=== PATIENT | female | born 1975 | race Hispanic/Latino ===

== ENCOUNTER 2018-03-10 20:28 | Emergency (ER) | payer OTHER ==
[~2018-03-10] VITALS: Ht 152.4 cm; Wt 75.0 kg
[2018-03-10] MEDS ORDERED: ONDANSETRON HCL INJ 2 MG/ML VIAL IV STA (20:58)
[2018-03-10] MEDS ORDERED: KETOROLAC TROMETHAMINE 30 MG/ML VIAL IV STA (20:58)
[2018-03-10] MEDS ORDERED: MORPHINE SULFATE 4 MG/ML SYR IV ONE (21:00)
[2018-03-10] MEDS ORDERED: SODIUM CHLORIDE 0.9% 1000ML 1,000 ML IV ONE (21:15)
[2018-03-10] MEDS ORDERED: CIPROFLOXACIN 500 MG TAB PO ONE (22:15)
[2018-03-10] MEDS ORDERED: METRONIDAZOLE 500MG/NS 100ML 100 ML IV ONE (22:15)
[2018-03-10] MEDS ORDERED: FENTANYL CITRATE/PF 100MCG/2 ML INJ IV ONE (22:15)
[2018-03-10 23:05] VITALS: BP 125/80
== END 2018-03-10 23:35 | disposition home or self-care (01) ==
LOC: FSED 20:28
DX: R10.9 Unspecified abdominal pain (principal); K57.32 Diverticulitis of large intestine without perforation or abscess without bleeding; H91.3 Deaf nonspeaking, not elsewhere classified
CPT/HCPCS: 74176; 80053; 81003; 81025; 85025; 96374; 96375; 99284; J1885; J2270; J2405; J7030

== ENCOUNTER 2018-03-17 00:46 | Inpatient (IN) | payer OTHER ==
[2018-03-17] VITALS (7 sets, daily range): BP systolic 138–160; BP diastolic 57–99
[~2018-03-17] VITALS: Ht 152.4 cm; Wt 68.5 kg
[2018-03-17 01:22] LABS: BASOPHILS % 0.3 % (0.0-1.0); EOSINOPHILS # (AUTO) 0.1 (0.0-0.4); EOSINOPHILS % 0.9 % (0.0-6.0); HEMATOCRIT 40.3 % (34.2-44.1); HEMOGLOBIN 13.7 g/dL (12.0-16.0); LYMPHOCYTES % 13.6 % (18.0-39.1); MEAN CORPUSCULAR HEMOGLOBIN 31.4 pg (28-32); MEAN CORPUSCULAR VOLUME 92.4 fL (81-99); MONOCYTES # (AUTO) 1.1 (0.2-0.8); MONOCYTES % 7.5 % (4.4-11.3); NEUTROPHILS # (AUTO) 11.3 (2.1-6.9); NEUTROPHILS % 77.4 % (38.7-80.0); PLATELET COUNT 472 x10e3/uL (140-360); RED BLOOD COUNT 4.36 x10e6/uL (3.6-5.1); RED CELL DISTRIBUTION WIDTH 12.6 % (11.7-14.4)
[2018-03-17 01:31] LABS: PREGNANCY TEST, URINE NEGATIVE (NEGATIVE)
[2018-03-17 01:33] LABS: INR 0.98; PARTIAL THROMBOPLASTIN TIME 29.7 seconds (23.8-35.5); PROTHROMBIN TIME 12.2 seconds (11.9-14.5)
[2018-03-17 01:34] LABS: ALBUMIN 3.6 g/dL (3.5-5.0); ALBUMIN/GLOBULIN RATIO 0.9 (0.8-2.0); ANION GAP 13.6 mmol/L (8-16); CALCIUM 9.6 mg/dL (8.4-10.2); CREATININE, SERUM 1.51 mg/dL (0.57-1.11); POTASSIUM 3.6 mmol/L (3.5-5.1)
[2018-03-17 01:42] LABS: CLARITY,URINE CLEAR (CLEAR); COLOR,URINE YELLOW (YELLOW); LEUKOCYTE ESTERASE ,URINE TRACE (NEGATIVE)
[2018-03-17 01:43] LABS: BACTERIA,URINE FEW /HPF; BILIRUBIN,URINE NEGATIVE (NEGATIVE); EPITHELIAL CELLS,URINE FEW /LPF; KETONES,URINE NEGATIVE (NEGATIVE); NITRITE,URINE NEGATIVE (NEGATIVE); PROTEIN,URINE DIPSTICK 1+ (NEGATIVE); URINE UROBILINOGEN 0.2 mg/dL (0.2 - 1)
[2018-03-17] MEDS ORDERED: MORPHINE SULFATE 2 MG/ML SYR IV STA (01:47)
[2018-03-17] MEDS ORDERED: ONDANSETRON HCL 4 MG ORAL DISINTEGRATING TAB PO ONE (02:00)
--- OUTSIDE RECORDS SUMMARY | 2018-03-17 02:17 | XMS REPORT | Continuity of Care Document ---
Author Author [facility] Organization [facility] Address [address] [place] [address] Phone Unavailable Care Team Providers Care Information Systems Security Developer Name Role Phone NO, PCP PCP Unavailable Insurance Providers Guarantor Bismark Denny Address [address] [place] [address] [facility] Policy Number [id number] Subscriber's Name Bismark Denny Relationship 18 Self / Same As Patient Advance Directives Directive Response Recorded Date/Time Does the patient have an advance directive? No 03/10/18 9:39pm If yes, is advance directive on file with [facility]? No 03/10/18 9:39pm If not on file with [facility] will patient provide a copy? No 03/10/18 9:39pm Do you have a Directive to Physician? No 03/10/18 9:39pm Do you have a Medical Power of Marketing And Outreach Coordinator? No 03/10/18 9:39pm Do you have an out of hospital Do Not Resuscitate Order? No 03/10/18 9:39pm Do you have any special needs we should be aware of? No 03/10/18 9:39pm Do you have a support person here with you today? No 03/10/18 9:39pm Did patient receive Notice of Privacy Practices? Yes 03/10/18 9:39pm Did patient receive patient rights and responsibilities? Yes 03/10/18 9:39pm Problems No problem information available. Medications No medication information available. Social History Smoking Status Start Date Stop Date Never Smoker Hospital Discharge Instructions No hospital discharge instruction information available. Plan of Care Discharge Date 03/10/18 11:35pm Disposition HOME, SELF-CARE Condition at Discharge Stable Forms Provided Work/School Excuse Prescriptions See Medication Section Referrals [facility] DO MD Address: [address] [place] [address] [address] [place] [address] Additional Instructions/Education CLINICAL IMPRESSION Acute diverticulitis of the colon. No perforation, bleeding or abscess. DISCHARGE INSTRUCTIONS Drink plenty of fluids. Prescription Medications: Cipro 500 mg: take 1 tab orally every 12 hours for 10 days. Dispense twenty (20). No refills. Substitution is permissible. Flagyl 500 mg: Take 1 tablet orally every 12 hours for 7 days. No refill. Substitution is permissible. Tylenol with Codeine Functional Status No functional status information available. Allergies, Adverse Reactions, Alerts Allergen Type Severity Reaction Status Last Updated CT SCAN DYE Allergy Severe Active 03/10/18 Immunizations No immunization information available. Vital Signs Acute Vital Signs Vital Response Date/Time Temperature (Fahrenheit) 98.0 degrees F (97.6 - 99.5) 03/10/2018 11:05pm Pulse Pulse Rate (adult) 72 bpm (60 - 90) 03/10/2018 11:05pm Respiratory Rate 18 bpm (12 - 24) 03/10/2018 11:05pm Blood Pressure 125/80 mm Hg 03/10/2018 11:05pm Height 5 ft 0 in 03/10/2018 9:00pm Weight 165.44 lb 03/10/2018 9:00pm Body Mass Index 32.3 kg/m^2 03/10/2018 9:00pm Results No relevant diagnostic test, laboratory data and/or discharge summary information available. Procedures No procedure information available. Encounters Encounter Location Arrival/Admit Date Discharge/Depart Date Attending Provider Departed Emergency Room [facility] 03/10/18 8:28pm 11:35pm CLAIRE CERDA MD
[2018-03-17] MEDS: LEVOFLOXACIN 500MG/D5W 100ML 100 ML IV SCH (02:45)
[2018-03-17] MEDS: METRONIDAZOLE 500MG/NS 100ML 100 ML IV SCH ×4 (02:45→19:42)
[2018-03-17] MEDS: SODIUM CHLORIDE 0.9% 1000ML 1,000 ML IV SCH ×2 (02:45→12:45)
[2018-03-17 07:36] LABS: BASOPHILS % 0.4 % (0.0-1.0); EOSINOPHILS # (AUTO) 0.1 (0.0-0.4); EOSINOPHILS % 1.3 % (0.0-6.0); HEMATOCRIT 34.2 % (34.2-44.1); HEMOGLOBIN 11.4 g/dL (12.0-16.0); LYMPHOCYTES # (AUTO) 2.5 (1.0-3.2); LYMPHOCYTES % 22.1 % (18.0-39.1); MEAN CORPUSCULAR HEMOGLOBIN 31.3 pg (28-32); MEAN CORPUSCULAR HGB CONC 33.3 g/dL (31-35); MONOCYTES % 8.6 % (4.4-11.3); NEUTROPHILS # (AUTO) 7.5 (2.1-6.9); NEUTROPHILS % 67.2 % (38.7-80.0); PLATELET COUNT 421 x10e3/uL (140-360); RED BLOOD COUNT 3.64 x10e6/uL (3.6-5.1); RED CELL DISTRIBUTION WIDTH 12.7 % (11.7-14.4)
[2018-03-17] MEDS: MORPHINE SULFATE 2 MG/ML SYR IV PRN ×2 (11:44→19:42)
[2018-03-17 12:47] LABS: BASOPHILS % 0.2 % (0.0-1.0); EOSINOPHILS # (AUTO) 0.2 (0.0-0.4); EOSINOPHILS % 1.2 % (0.0-6.0); HEMATOCRIT 35.6 % (34.2-44.1); HEMOGLOBIN 11.9 g/dL (12.0-16.0); LYMPHOCYTES # (AUTO) 2.2 (1.0-3.2); LYMPHOCYTES % 17.1 % (18.0-39.1); MEAN CORPUSCULAR HEMOGLOBIN 31.3 pg (28-32); MEAN CORPUSCULAR HGB CONC 33.4 g/dL (31-35); MEAN CORPUSCULAR VOLUME 93.7 fL (81-99); MONOCYTES # (AUTO) 1.2 (0.2-0.8); MONOCYTES % 9.4 % (4.4-11.3); NEUTROPHILS # (AUTO) 9.2 (2.1-6.9); NEUTROPHILS % 71.8 % (38.7-80.0); PLATELET COUNT 426 x10e3/uL (140-360); RED CELL DISTRIBUTION WIDTH 12.7 % (11.7-14.4)
[2018-03-17 19:10] LABS: BASOPHILS % 0.3 % (0.0-1.0); EOSINOPHILS # (AUTO) 0.1 (0.0-0.4); EOSINOPHILS % 0.7 % (0.0-6.0); HEMATOCRIT 37.3 % (34.2-44.1); HEMOGLOBIN 12.4 g/dL (12.0-16.0); LYMPHOCYTES % 15.6 % (18.0-39.1); MEAN CORPUSCULAR HEMOGLOBIN 31.2 pg (28-32); MEAN CORPUSCULAR HGB CONC 33.2 g/dL (31-35); MONOCYTES # (AUTO) 1.1 (0.2-0.8); MONOCYTES % 8.6 % (4.4-11.3); NEUTROPHILS # (AUTO) 9.3 (2.1-6.9); NEUTROPHILS % 74.4 % (38.7-80.0); PLATELET COUNT 438 x10e3/uL (140-360); RED BLOOD COUNT 3.97 x10e6/uL (3.6-5.1); RED CELL DISTRIBUTION WIDTH 12.7 % (11.7-14.4)
[2018-03-17] MEDS: ONDANSETRON HCL 4 MG ORAL DISINTEGRATING TAB PO PRN (19:42)
[2018-03-18] VITALS (8 sets, daily range): BP systolic 134–163; BP diastolic 74–87
[2018-03-18] MEDS: SODIUM CHLORIDE 0.9% 1000ML 1,000 ML IV SCH ×2 (00:02→15:38)
[2018-03-18 00:13] LABS: BASOPHILS % 0.2 % (0.0-1.0); EOSINOPHILS # (AUTO) 0.1 (0.0-0.4); EOSINOPHILS % 0.4 % (0.0-6.0); HEMATOCRIT 35.8 % (34.2-44.1); HEMOGLOBIN 11.9 g/dL (12.0-16.0); LYMPHOCYTES # (AUTO) 2.1 (1.0-3.2); LYMPHOCYTES % 16.2 % (18.0-39.1); MEAN CORPUSCULAR HGB CONC 33.2 g/dL (31-35); MEAN CORPUSCULAR VOLUME 93.2 fL (81-99); MONOCYTES % 7.9 % (4.4-11.3); NEUTROPHILS # (AUTO) 9.6 (2.1-6.9); NEUTROPHILS % 74.8 % (38.7-80.0); PLATELET COUNT 444 x10e3/uL (140-360); RED BLOOD COUNT 3.84 x10e6/uL (3.6-5.1); RED CELL DISTRIBUTION WIDTH 12.9 % (11.7-14.4)
[2018-03-18] MEDS: METRONIDAZOLE 500MG/NS 100ML 100 ML IV SCH ×4 (01:35→20:14)
[2018-03-18] MEDS: LEVOFLOXACIN 500MG/D5W 100ML 100 ML IV SCH (02:32)
[2018-03-18 06:11] LABS: BASOPHILS % 0.3 % (0.0-1.0); EOSINOPHILS % 0.4 % (0.0-6.0); HEMATOCRIT 34.5 % (34.2-44.1); HEMOGLOBIN 11.4 g/dL (12.0-16.0); LYMPHOCYTES # (AUTO) 2.4 (1.0-3.2); LYMPHOCYTES % 22.2 % (18.0-39.1); MEAN CORPUSCULAR HEMOGLOBIN 31.7 pg (28-32); MEAN CORPUSCULAR VOLUME 95.8 fL (81-99); MONOCYTES % 8.9 % (4.4-11.3); NEUTROPHILS # (AUTO) 7.3 (2.1-6.9); NEUTROPHILS % 67.9 % (38.7-80.0); PLATELET COUNT 427 x10e3/uL (140-360); RED CELL DISTRIBUTION WIDTH 12.8 % (11.7-14.4)
[2018-03-18] MEDS: PANTOPRAZOLE 40 MG 10ML VIAL IV SCH (08:15)
--- NOTE | 2018-03-18 12:24 | Diagnostic Imaging Report ---
PROCEDURE: CT ABDOMEN AND PELVIS WITHOUT CONTRAST TECHNIQUE: The abdomen and pelvis were scanned utilizing a multidetector helical scanner from the diaphragm to the lesser trochanter after the oral administration of Redicat. No IV contrast was administered due to history of iodine allergy Coronal and sagittal multiplanar reformations were obtained. COMPARISON: None. INDICATIONS: ABDOMINAL PAIN. PREVIOUS DIVERTICULITIS FINDINGS: ABSENCE OF INTRAVENOUS CONTRAST DECREASES SENSITIVITY FOR DETECTION OF FOCAL LESIONS AND VASCULAR PATHOLOGY. LOWER THORAX: Lung bases are clear. HEPATOBILIARY: No focal hepatic lesions. No biliary ductal dilatation. Cholecystectomy clips SPLEEN: No splenomegaly. PANCREAS: No focal masses or ductal dilatation. ADRENALS: No adrenal nodules. KIDNEYS/URETERS: No hydronephrosis, stones, or solid mass lesions. PELVIC ORGANS/BLADDER: Unremarkable. PERITONEUM / RETROPERITONEUM: No free air or fluid. LYMPH NODES: No lymphadenopathy. VESSELS: Unremarkable. GI TRACT: No bowel dilation or evidence of obstruction. Distal descending and sigmoid colon diverticulosis. There is an approximately 5 cm portion of the proximal sigmoid colon, which shows mild to moderate surrounding fat stranding and moderate wall thickening (series 2, images [id number]). No foci of extraluminal air or well defined fluid collections. BONES AND SOFT TISSUES: No aggressive lytic lesions. Soft tissues are unremarkable. IMPRESSION: 1. Findings in the proximal sigmoid colon likely represent diverticulitis, in the appropriate clinical setting. No evidence of perforation or abscess formation. Chang Alford M.D. Dictated by: Chang Alford M.D. on 03/18/2018 at 12:27 Electronically approved by: Chang Alford M.D. on 03/18/2018 at 12:27
[2018-03-19] VITALS: BP 135/82
[2018-03-19] MEDS: LEVOFLOXACIN 500MG/D5W 100ML 100 ML IV SCH (02:23)
[2018-03-19] MEDS: METRONIDAZOLE 500MG/NS 100ML 100 ML IV SCH ×2 (02:23→08:00)
[2018-03-19 04:00] VITALS: BP 141/76
[2018-03-19 07:00] VITALS: BP 141/76
[2018-03-19 07:49] VITALS: BP 141/76
[2018-03-19] MEDS: ONDANSETRON HCL 4 MG ORAL DISINTEGRATING TAB PO PRN (08:08)
[2018-03-19] MEDS: SODIUM CHLORIDE 0.9% 1000ML 1,000 ML IV SCH (08:58)
[2018-03-19] MEDS: PANTOPRAZOLE 40 MG 10ML VIAL IV SCH (08:58)
[2018-03-19 11:52] VITALS: BP 149/92
== END 2018-03-19 12:53 | disposition home or self-care (01) | DRG 379 ==
LOC: ER 00:46 → MED/SURG3 02:14
DX: K57.33 Diverticulitis of large intestine without perforation or abscess with bleeding (principal); H91.3 Deaf nonspeaking, not elsewhere classified; J45.909 Unspecified asthma, uncomplicated
CPT/HCPCS: 36415; 74176; 80053; 81001; 81025; 85014; 85018; 85025; 85610; 85730; 86850; 86870; 86880; 86900; 86905; 96361; 99001; 99284; J1956; J2270; J7030

== ENCOUNTER 2020-10-12 00:53 | Emergency (ER) | payer OTHER ==
[~2020-10-12] VITALS: Ht 154.9 cm; Wt 72.6 kg
[~2020-10-12 00:53] MED LIST: BENTYL10 MG/1 ML PO
[2020-10-12] MEDS ORDERED: CEFDINIR300 MG PO (01:33)
== END 2020-10-12 01:40 | disposition home or self-care (01) ==
LOC: FSED 01:29
DX: N30.00 Acute cystitis without hematuria (principal); R30.0 Dysuria; I10 Essential (primary) hypertension; J45.909 Unspecified asthma, uncomplicated; Z87.19 Personal history of other diseases of the digestive system
CPT/HCPCS: 81003; 99282

== ENCOUNTER 2021-10-13 15:11 | Emergency (ER) | payer OTHER ==
[~2021-10-13] VITALS: Ht 154.9 cm; Wt 72.6 kg
[~2021-10-13 15:11] MED LIST changes: +CEFDINIR300 MG PO
[2021-10-13] MEDS ORDERED: KETOROLAC TROMETHAMINE 30 MG/ML VIAL IM NR (15:30)
[2021-10-13] MEDS ORDERED: CYCLOBENZAPRINE10 MG PO (16:39)
[2021-10-13] MEDS ORDERED: LIDOCAINE1 EAC1 TD (16:39)
[2021-10-13] MEDS ORDERED: NAPROXEN250 MG PO (16:39)
== END 2021-10-13 17:03 | disposition home or self-care (01) ==
LOC: ER 16:00
DX: M54.50 Low back pain, unspecified (principal); W10.8XXA Fall (on) (from) other stairs and steps, initial encounter; Y93.01 Activity, walking, marching and hiking; Y92.89 Other specified places as the place of occurrence of the external cause; I10 Essential (primary) hypertension; J45.909 Unspecified asthma, uncomplicated; Z87.19 Personal history of other diseases of the digestive system
CPT/HCPCS: 72100; 99283; J1885

== ENCOUNTER 2022-06-11 13:40 | Emergency (ER) | payer OTHER ==
[~2022-06-11] VITALS: Ht 154.9 cm; Wt 72.6 kg
[~2022-06-11 13:40] MED LIST changes: +CYCLOBENZAPRINE10 MG PO; +LIDOCAINE1 EAC1 TD; +NAPROXEN250 MG PO
[2022-06-11] MEDS ORDERED: IBUPROFEN 600 MG TAB PO STA (14:36)
[2022-06-11] MEDS ORDERED: PROVENTIL HFA6.7 GM INH (14:46)
[2022-06-11] MEDS ORDERED: BROMFED DM COU118 ML PO (14:47)
[2022-06-11] MEDS ORDERED: IBUPROFEN 600 MG TAB ONE (14:52)
== END 2022-06-11 14:55 | disposition home or self-care (01) ==
LOC: FSED 13:59
DX: R05.9 Cough, unspecified (principal); U07.1 COVID-19; J45.909 Unspecified asthma, uncomplicated; I10 Essential (primary) hypertension; H91.3 Deaf nonspeaking, not elsewhere classified; Z87.19 Personal history of other diseases of the digestive system
CPT/HCPCS: 99283; U0002

== ENCOUNTER 2022-11-07 19:23 | Emergency (ER) | payer OTHER ==
[~2022-11-07] VITALS: Ht 154.9 cm; Wt 72.6 kg
[~2022-11-07 19:23] MED LIST changes: +BROMFED DM COU118 ML PO; +PROVENTIL HFA6.7 GM INH
[2022-11-07 20:08] LABS: BASOPHILS % 0.2 % (0.0-1.0); EOSINOPHILS # (AUTO) 0.1 (0.0-0.4); EOSINOPHILS % 0.4 % (0.0-6.0); HEMATOCRIT 39.8 % (34.2-44.1); HEMOGLOBIN 12.5 g/dL (12.0-16.0); LYMPHOCYTES # (AUTO) 2.8 (1.0-3.2); MEAN CORPUSCULAR HEMOGLOBIN 31.2 pg (28-32); MEAN CORPUSCULAR HGB CONC 31.4 g/dL (31-35); MEAN CORPUSCULAR VOLUME 99.3 fL (81-99); MONOCYTES # (AUTO) 0.7 (0.2-0.8); MONOCYTES % 5.1 % (4.4-11.3); NEUTROPHILS # (AUTO) 9.2 (2.1-6.9); NEUTROPHILS % 72.1 % (38.7-80.0); PLATELET COUNT 401 x10e3/uL (140-360); RED BLOOD COUNT 4.01 x10e6/uL (3.6-5.1); RED CELL DISTRIBUTION WIDTH 12.1 % (11.7-14.4)
[2022-11-07 20:25] LABS: ALBUMIN 3.8 g/dL (3.5-5.0); ALBUMIN/GLOBULIN RATIO 0.9 (0.8-2.0); ANION GAP 15.4 mmol/L (8-16); CALCIUM 9.2 mg/dL (8.4-10.2); CREATININE, SERUM 0.7 mg/dL (0.57-1.11); POTASSIUM 3.4 mmol/L (3.5-5.1)
[2022-11-07 20:26] LABS: CLARITY,URINE SL CLOUDY (CLEAR); COLOR,URINE AMBER (YELLOW); KETONES,URINE NEGATIVE (NEGATIVE); LEUKOCYTE ESTERASE ,URINE NEGATIVE (NEGATIVE); NITRITE,URINE NEGATIVE (NEGATIVE); PROTEIN,URINE DIPSTICK 2+ (NEGATIVE); URINE UROBILINOGEN 0.2 mg/dL (0.2 - 1)
[2022-11-07 20:44] LABS: AMORPHOUS SEDIMENT,URINE MODERATE (FEW); BACTERIA,URINE FEW /HPF; CALCIUM OXALATE CRYSTALS,UR FEW (FEW); EPITHELIAL CELLS,URINE FEW /LPF; RBC,URINE 0-5 /HPF (0-5)
[2022-11-07] MEDS ORDERED: Morphine 4mg INJECTION 4 MG/ML INJ IV STA (21:13)
[2022-11-07] MEDS ORDERED: ONDANSETRON HCL INJ 2MG/ML 2ML 2 MG/ML VIAL IV STA (21:13)
[2022-11-07] MEDS ORDERED: Morphine 4mg INJECTION 4 MG/ML INJ ONE (21:35)
[2022-11-07] MEDS ORDERED: ONDANSETRON HCL INJ 2MG/ML 2ML 2 MG/ML VIAL ONE (21:35)
[2022-11-07] MEDS ORDERED: ONDANSETRON ODT4 MG PO (21:58)
[2022-11-07] MEDS ORDERED: VENTOLIN HFA18 GM INH (22:13)
== END 2022-11-07 22:15 | disposition home or self-care (01) ==
LOC: ER 19:30
DX: R10.32 Left lower quadrant pain (principal); K57.32 Diverticulitis of large intestine without perforation or abscess without bleeding; N20.0 Calculus of kidney; I10 Essential (primary) hypertension; J45.909 Unspecified asthma, uncomplicated; H91.3 Deaf nonspeaking, not elsewhere classified
CPT/HCPCS: 36415; 74176; 80053; 81001; 81025; 83690; 85025; 99284; J2270; J2405

== ENCOUNTER 2022-11-17 14:43 | Inpatient (IN) | payer OTHER ==
[~2022-11-17] VITALS: Ht 160 cm; Wt 65.3 kg
[~2022-11-17 14:43] MED LIST changes: +ONDANSETRON ODT4 MG PO; +VENTOLIN HFA18 GM INH
[2022-11-17] MEDS ORDERED: METRONIDAZOLE 500MG/NS 100ML 100 ML IV ONE ×2 (15:16→15:50)
[2022-11-17] MEDS ORDERED: SODIUM CHLORIDE 0.9% 1000ML 1,000 ML IV STA (15:19)
[2022-11-17] MEDS ORDERED: PROMETHAZINE 25MG/ NS 50ML (IV) IV ONE (15:30)
[2022-11-17] MEDS ORDERED: PROMETHAZINE HCL (IM) 25 MG/ML VIAL IM ONE (15:49)
[2022-11-17] MEDS ORDERED: PIPERACILLIN/TAZOBACTAM 3.375 GM VIAL ONE (15:50)
[2022-11-17] MEDS ORDERED: SODIUM CHLORIDE 0.9% 1000ML 1,000 ML ONE (15:50)
[2022-11-17] MEDS ORDERED: Morphine 2mg Syringe 2 MG/ML SYR IV PRN (16:00)
[2022-11-17] MEDS: SODIUM CHLORIDE 0.9% 1000ML 1,000 ML IV SCH ×2 (16:00→23:29)
[2022-11-17] MEDS ORDERED: ONDANSETRON HCL INJ 2MG/ML 2ML 2 MG/ML VIAL IV PRN (16:00)
[2022-11-17 19:46] VITALS: BP 130/85
[2022-11-17] MEDS: HYDROMORPHONE 1MG/1ML INJ IV PRN (23:28)
[2022-11-18] VITALS (7 sets, daily range): BP systolic 105–124; BP diastolic 73–87
[2022-11-18 06:18] LABS: BASOPHILS % 0.3 % (0.0-1.0); EOSINOPHILS # (AUTO) 0.1 (0.0-0.4); EOSINOPHILS % 2.2 % (0.0-6.0); HEMATOCRIT 37.1 % (34.2-44.1); HEMOGLOBIN 11.6 g/dL (12.0-16.0); LYMPHOCYTES # (AUTO) 2.6 (1.0-3.2); LYMPHOCYTES % 41.1 % (18.0-39.1); MEAN CORPUSCULAR HEMOGLOBIN 31.2 pg (28-32); MEAN CORPUSCULAR HGB CONC 31.3 g/dL (31-35); MEAN CORPUSCULAR VOLUME 99.7 fL (81-99); MONOCYTES # (AUTO) 0.8 (0.2-0.8); MONOCYTES % 12.8 % (4.4-11.3); NEUTROPHILS # (AUTO) 2.7 (2.1-6.9); NEUTROPHILS % 43.1 % (38.7-80.0); PLATELET COUNT 442 x10e3/uL (140-360); RED BLOOD COUNT 3.72 x10e6/uL (3.6-5.1)
[2022-11-18 06:31] LABS: INR 0.99; PROTHROMBIN TIME 13.3 seconds (11.9-14.5)
[2022-11-18 06:32] LABS: PARTIAL THROMBOPLASTIN TIME 30.5 seconds (23.8-35.5)
[2022-11-18 06:43] LABS: ALBUMIN 3.1 g/dL (3.5-5.0); ALBUMIN/GLOBULIN RATIO 0.9 (0.8-2.0); ANION GAP 10.8 mmol/L (8-16); CALCIUM 8.3 mg/dL (8.4-10.2); CREATININE, SERUM 0.76 mg/dL (0.57-1.11); POTASSIUM 3.8 mmol/L (3.5-5.1)
[2022-11-18] MEDS: SODIUM CHLORIDE 0.9% 1000ML 1,000 ML IV SCH ×2 (08:00→12:21)
[2022-11-18] MEDS ORDERED: ALBUTEROL SULFATE HFA 8GM INHALATION AEROSOL INH PRN (09:15)
[2022-11-18] MEDS: FAMOTIDINE 20 MG/2 ML VIAL IV SCH (12:21)
[2022-11-18] MEDS: HYDROMORPHONE 1MG/1ML INJ IV PRN ×2 (16:12→20:44)
[2022-11-19] VITALS (8 sets, daily range): BP systolic 114–135; BP diastolic 75–97
[2022-11-19] MEDS: SODIUM CHLORIDE 0.9% 1000ML 1,000 ML IV SCH ×4 (00:07→23:48)
[2022-11-19] MEDS: FAMOTIDINE 20 MG/2 ML VIAL IV SCH ×2 (09:02→17:31)
[2022-11-19] MEDS: METRONIDAZOLE 500 MG TAB PO SCH ×2 (17:31→23:22)
[2022-11-20 01:05] VITALS: BP 120/86
[2022-11-20 05:39] VITALS: BP 111/80
[2022-11-20] MEDS: METRONIDAZOLE 500 MG TAB PO SCH (05:46)
[2022-11-20] MEDS ORDERED: FAMOTIDINE20 MG PO (07:26)
[2022-11-20] MEDS ORDERED: METRONIDAZOLE500 MG PO (07:26)
[2022-11-20] MEDS ORDERED: METAMUCIL FIBE3.4 GM PO (07:33)
[2022-11-20 08:00] VITALS: BP 115/83
[2022-11-20 08:29] VITALS: BP 115/83
[2022-11-20] MEDS: FAMOTIDINE 20 MG/2 ML VIAL IV SCH (09:02)
== END 2022-11-20 10:50 | disposition home or self-care (01) | DRG 392 ==
LOC: FSED 14:48 → ERHOLD 15:50 → MED/SURG3 19:45
PROVIDERS: ADMIT Internal Medicine; ATTEND Internal Medicine
DX: K57.32 Diverticulitis of large intestine without perforation or abscess without bleeding (principal); N20.0 Calculus of kidney; I10 Essential (primary) hypertension; H90.5 Unspecified sensorineural hearing loss; J45.909 Unspecified asthma, uncomplicated; Z90.49 Acquired absence of other specified parts of digestive tract; Z90.710 Acquired absence of both cervix and uterus; Z98.51 Tubal ligation status; Z91.041 Radiographic dye allergy status; Z79.2 Long term (current) use of antibiotics; Z79.899 Other long term (current) drug therapy; Z79.1 Long term (current) use of non-steroidal anti-inflammatories (NSAID)
CPT/HCPCS: 0223U; 36415; 80053; 81003; 85025; 85610; 85730; 87040; 94799; 96361; 99284; J1170; J2270; J2405; J2543; J2550; J7030

== ENCOUNTER 2023-04-06 23:08 | Emergency (ER) | payer OTHER ==
[~2023-04-06] VITALS: Ht 160 cm; Wt 65.3 kg
[~2023-04-06 23:08] MED LIST changes: +FAMOTIDINE20 MG PO; +METAMUCIL FIBE3.4 GM PO; +METRONIDAZOLE500 MG PO
[2023-04-06 23:11] VITALS: O2SAT 97
[2023-04-06] MEDS ORDERED: DIPHENHYDRAMINE HCL INJ 50 MG/ML VIAL ONE (23:21)
[2023-04-06] MEDS ORDERED: FAMOTIDINE 20 MG/2 ML VIAL IV ONE (23:21)
[2023-04-06] MEDS ORDERED: DEXAMETHASONE SOD PHOS INJ 4 MG/ML SDV ONE (23:21)
[2023-04-06] MEDS ORDERED: SODIUM CHLORIDE 0.9% 1000ML 1,000 ML ONE (23:21)
[2023-04-06] MEDS ORDERED: FAMOTIDINE 20 MG/2 ML VIAL IV STA (23:22)
[2023-04-06] MEDS ORDERED: DIPHENHYDRAMINE HCL INJ 50 MG/ML VIAL IV ONE (23:30)
[2023-04-06] MEDS ORDERED: SODIUM CHLORIDE 0.9% 1000ML 1,000 ML IV SCH (23:30)
[2023-04-06] MEDS ORDERED: DEXAMETHASONE SOD PHOS INJ 4 MG/ML SDV IV ONE (23:30)
[2023-04-07] MEDS ORDERED: PREDNISONE20 MG PO (00:01)
[2023-04-07] MEDS ORDERED: FAMOTIDINE20 MG PO (00:03)
[2023-04-07] MEDS ORDERED: CETIRIZINE HCL10 MG PO (00:04)
[2023-04-07] MEDS ORDERED: EPINEPHRIN0.3 MG/0.3 IM (00:07)
== END 2023-04-07 00:33 | disposition home or self-care (01) ==
LOC: FSED 23:23
DX: L50.9 Urticaria, unspecified (principal); T78.1XXA Other adverse food reactions, not elsewhere classified, initial encounter; I10 Essential (primary) hypertension; J45.909 Unspecified asthma, uncomplicated; K21.9 Gastro-esophageal reflux disease without esophagitis; H91.3 Deaf nonspeaking, not elsewhere classified; Z87.19 Personal history of other diseases of the digestive system
CPT/HCPCS: 99283; J1100; J1200; J7030

== ENCOUNTER 2023-12-23 06:07 | Emergency (ER) | payer OTHER ==
[~2023-12-23] VITALS: Ht 160 cm; Wt 65.3 kg
[~2023-12-23 06:07] MED LIST changes: +AMOX TR-K CLV1 EAC2 PO; +CETIRIZINE HCL10 MG PO; +DICYCLOMINE HCL20 MG PO; +EPINEPHRIN0.3 MG/0.3 IM; +PREDNISONE20 MG PO
[2023-12-23] MEDS: ONDANSETRON HCL INJ 2MG/ML 2ML 2 MG/ML VIAL IV STA (06:50)
[2023-12-23] MEDS: Morphine 4mg INJECTION 4 MG/ML INJ IV STA (06:50)
[2023-12-23] MEDS: SODIUM CHLORIDE 0.9% 1000ML 1,000 ML IV STA (06:51)
[2023-12-23 07:00] LABS: BASOPHILS # (AUTO) 0.1 (0.0-0.1); BASOPHILS % 0.6 % (0.0-1.0); EOSINOPHILS # (AUTO) 0.2 (0.0-0.4); EOSINOPHILS % 1.8 % (0.0-6.0); HEMATOCRIT 41.8 % (34.2-44.1); HEMOGLOBIN 13.4 g/dL (12.0-16.0); LYMPHOCYTES % 39.5 % (18.0-39.1); MEAN CORPUSCULAR HEMOGLOBIN 30.9 pg (28-32); MEAN CORPUSCULAR HGB CONC 32.1 g/dL (31-35); MEAN CORPUSCULAR VOLUME 96.5 fL (81-99); MONOCYTES # (AUTO) 0.6 (0.2-0.8); MONOCYTES % 5.9 % (4.4-11.3); NEUTROPHILS # (AUTO) 5.2 (2.1-6.9); PLATELET COUNT 389 x10e3/uL (140-360); RED BLOOD COUNT 4.33 x10e6/uL (3.6-5.1); RED CELL DISTRIBUTION WIDTH 13.2 % (11.7-14.4); WHITE BLOOD COUNT 10.01 x10e3/uL (4.8-10.8)
[2023-12-23 07:10] LABS: INR 1.04; PROTHROMBIN TIME 13.8 seconds (11.9-14.5)
[2023-12-23 07:11] LABS: PARTIAL THROMBOPLASTIN TIME 28.1 seconds (23.8-35.5)
[2023-12-23 07:16] LABS: BILIRUBIN,URINE SMALL (NEGATIVE); CLARITY,URINE CLOUDY (CLEAR); COLOR,URINE YELLOW (YELLOW); GLUCOSE, URINE NEGATIVE (NEGATIVE); KETONES,URINE NEGATIVE (NEGATIVE); LEUKOCYTE ESTERASE ,URINE NEGATIVE (NEGATIVE); NITRITE,URINE NEGATIVE (NEGATIVE); PH,URINE 5.5 (5 - 7); PROTEIN,URINE DIPSTICK 2+ (NEGATIVE); URINE UROBILINOGEN 0.2 mg/dL (0.2 - 1)
[2023-12-23 07:30] LABS: RBC,URINE >50 /HPF (0-5)
[2023-12-23 07:31] LABS: ALANINE AMINOTRANSFERASE 17 IU/L (0-55); ALBUMIN 3.9 g/dL (3.5-5.0); ALKALINE PHOSPHATASE 72 IU/L (40-150); ANION GAP 12.3 mmol/L (8-16); BLOOD UREA NITROGEN 17 mg/dL (7-26); BUN/CREATININE RATIO 21 (6-25); CALCIUM 8.9 mg/dL (8.4-10.2); CARBON DIOXIDE 22 mmol/L (22-29); CHLORIDE 107 mmol/L (98-107); CREATINE KINASE 75 IU/L (29-168); CREATININE, SERUM 0.82 mg/dL (0.57-1.11); EST GLOMERULAR FILTRATION RATE 89 ML/MIN (>=60); GLUCOSE 116 mg/dL (74-118); LIPASE 78 U/L (8-78); SODIUM 138 mmol/L (136-145); TOTAL PROTEIN 7.8 g/dL (6.5-8.1)
[2023-12-23 07:33] LABS: POTASSIUM 3.3 mmol/L (3.5-5.1)
[2023-12-23 07:38] LABS: BACTERIA,URINE RARE /HPF; CALCIUM OXALATE CRYSTALS,UR FEW (FEW); EPITHELIAL CELLS,URINE RARE /LPF; WBC,URINE (MAN) 0-5 /HPF (0-5)
[2023-12-23 07:39] LABS: MUCUS,URINE FEW (RARE)
[2023-12-23 07:41] LABS: BILIRUBIN,TOTAL 0.3 mg/dL (0.2-1.2)
[2023-12-23 07:44] LABS: TROPONIN I < 0.001 ng/mL (0-0.300)
[2023-12-23] MEDS: DICYCLOMINE HCL 20 MG/2 ML VIAL IM ONE (08:38)
[2023-12-23] MEDS ORDERED: ONDANSETRON ODT4 MG PO (08:48)
[2023-12-23] MEDS ORDERED: DICYCLOMINE HCL20 MG PO (08:48)
[2023-12-23 09:32] VITALS: BP 131/67; PULSE 76; RESP 18; O2SAT 100
== END 2023-12-23 09:40 | disposition home or self-care (01) ==
LOC: ER 06:16
DX: R31.29 Other microscopic hematuria (principal); K57.30 Diverticulosis of large intestine without perforation or abscess without bleeding; R10.31 Right lower quadrant pain; R19.7 Diarrhea, unspecified; I10 Essential (primary) hypertension; J45.909 Unspecified asthma, uncomplicated; K21.9 Gastro-esophageal reflux disease without esophagitis; H91.3 Deaf nonspeaking, not elsewhere classified
CPT/HCPCS: 36415; 71045; 74176; 80053; 81001; 82550; 83690; 83735; 84484; 85025; 85610; 85730; 93005; 99284; C9113; J0500; J2270; J2405; J7030

== ENCOUNTER 2024-02-09 00:55 | Inpatient (IN) | payer OTHER ==
[2024-02-09] VITALS (8 sets, daily range): BP systolic 99–144; BP diastolic 64–92; PULSE 51–66; RESP 16–19; TEMP 97–98.1; O2SAT 97–100
[~2024-02-09] VITALS: Ht 160 cm; Wt 65.3 kg
[~2024-02-09 00:55] MED LIST changes: +NAPROSYN500 MG PO; +PYRIDIUM200 MG PO
[2024-02-09 01:32] LABS: BILIRUBIN,URINE SMALL (NEGATIVE); CLARITY,URINE SL CLOUDY (CLEAR); COLOR,URINE YELLOW (YELLOW); GLUCOSE, URINE NEGATIVE (NEGATIVE); KETONES,URINE NEGATIVE (NEGATIVE); LEUKOCYTE ESTERASE ,URINE NEGATIVE (NEGATIVE); NITRITE,URINE NEGATIVE (NEGATIVE); PH,URINE 5.5 (5 - 7); PREGNANCY TEST, URINE NEGATIVE (NEGATIVE); PROTEIN,URINE DIPSTICK TRACE (NEGATIVE); URINE UROBILINOGEN 0.2 mg/dL (0.2 - 1)
[2024-02-09] MEDS ORDERED: KETOROLAC TROMETHAMINE 60 MG/2 ML VIAL ONE ×2 (01:59→13:44)
[2024-02-09 02:01] LABS: BACTERIA,URINE FEW /HPF; EPITHELIAL CELLS,URINE FEW /LPF; WBC,URINE (MAN) 0-5 /HPF (0-5)
[2024-02-09] MEDS: KETOROLAC TROMETHAMINE 60 MG/2 ML VIAL IM STA (02:04)
[2024-02-09] MEDS ORDERED: SODIUM CHLORIDE 0.9% 1000ML 1,000 ML ONE ×2 (04:22→04:23)
[2024-02-09] MEDS: SODIUM CHLORIDE 0.9% 1000ML 1,000 ML IV STA (04:26)
[2024-02-09 04:28] LABS: BASOPHILS # (AUTO) 0.1 (0.0-0.1); BASOPHILS % 0.5 % (0.0-1.0); EOSINOPHILS # (AUTO) 0.1 (0.0-0.4); EOSINOPHILS % 0.7 % (0.0-6.0); HEMATOCRIT 41.9 % (34.2-44.1); HEMOGLOBIN 14.5 g/dL (12.0-16.0); LYMPHOCYTES # (AUTO) 4.7 (1.0-3.2); MEAN CORPUSCULAR HEMOGLOBIN 31.2 pg (28-32); MEAN CORPUSCULAR HGB CONC 34.6 g/dL (31-35); MEAN CORPUSCULAR VOLUME 90.1 fL (81-99); MONOCYTES # (AUTO) 0.9 (0.2-0.8); NEUTROPHILS # (AUTO) 7.3 (2.1-6.9); NEUTROPHILS % 55.5 % (38.7-80.0); PLATELET COUNT 399 x10e3/uL (140-360); RED BLOOD COUNT 4.65 x10e6/uL (3.6-5.1); RED CELL DISTRIBUTION WIDTH 12.5 % (11.7-14.4)
[2024-02-09 04:43] LABS: ALBUMIN 4.3 g/dL (3.5-5.0); ANION GAP 14.6 mmol/L (8-16); BILIRUBIN,TOTAL 0.3 mg/dL (0.2-1.2); CALCIUM 10.1 mg/dL (8.4-10.2); CREATININE, SERUM 0.93 mg/dL (0.57-1.11); POTASSIUM 3.6 mmol/L (3.5-5.1); TOTAL PROTEIN 8.4 g/dL (6.5-8.1)
[2024-02-09] MEDS: SODIUM CHLORIDE 0.9% 1000ML 1,000 ML IV SCH (04:44)
[2024-02-09] MEDS: Morphine 4mg INJECTION 4 MG/ML INJ IV PRN (04:52)
[2024-02-09] MEDS: ONDANSETRON HCL INJ 2MG/ML 2ML 2 MG/ML VIAL IV PRN (04:52)
[2024-02-09] MEDS ORDERED: ONDANSETRON HCL INJ 2MG/ML 2ML 2 MG/ML VIAL ONE ×2 (04:54→13:44)
[2024-02-09] MEDS ORDERED: Morphine 4mg INJECTION 4 MG/ML INJ ONE ×2 (04:54→13:44)
[2024-02-09] MEDS ORDERED: KETOROLAC TROMETHAMINE 30 MG/ML VIAL ONE ×2 (06:30→08:50)
[2024-02-09] MEDS: KETOROLAC TROMETHAMINE 30 MG/ML VIAL IM PRN (06:31)
[2024-02-09] MEDS ORDERED: CEFTRIAXONE 1 GM VIAL ONE (08:50)
[2024-02-09] MEDS ORDERED: DOCUSATE SODIUM 100 MG CAP ONE (08:50)
[2024-02-09] MEDS ORDERED: Sodium Chloride 0.9% 50ML Bag ONE (08:50)
[2024-02-09] MEDS ORDERED: SENNOSIDES 8.6 MG TAB ONE (08:50)
[2024-02-09] MEDS ORDERED: OXYBUTYNIN CHLORIDE XL 5 MG TAB PO ONE (08:50)
[2024-02-09] MEDS ORDERED: OXYBUTYNIN CHLORIDE 5 MG TAB ONE (08:50)
[2024-02-09] MEDS ORDERED: PIPERACILLIN/TAZOBACTAM 3.375 GM VIAL ONE (08:50)
[2024-02-09] MEDS ORDERED: PHENAZOPYRIDINE HCL 100 MG TAB ONE (08:50)
[2024-02-09] MEDS ORDERED: SODIUM CHLORIDE 0.9% 1000 ML BAG ONE ×2 (08:50→13:44)
[2024-02-09] MEDS ORDERED: HEPARIN SOD (PORCINE) 5,000 UNIT/ML VIAL ONE (08:50)
[2024-02-09] MEDS ORDERED: ASPIRIN 81 MG ENTERIC COATED PO ONE (08:50)
[2024-02-09] MEDS: PHENAZOPYRIDINE HCL 100 MG TAB PO PRN (10:51)
[2024-02-09] MEDS: OXYBUTYNIN CHLORIDE 5 MG TAB PO SCH (10:52)
[2024-02-10] VITALS (8 sets, daily range): BP systolic 112–141; BP diastolic 70–84; PULSE 50–92; RESP 18–20; TEMP 97.6–98.1; O2SAT 96–100
[2024-02-10 05:35] LABS: BASOPHILS % 0.4 % (0.0-1.0); EOSINOPHILS # (AUTO) 0.2 (0.0-0.4); EOSINOPHILS % 2.9 % (0.0-6.0); HEMATOCRIT 35.2 % (34.2-44.1); HEMOGLOBIN 11.3 g/dL (12.0-16.0); LYMPHOCYTES # (AUTO) 4.2 (1.0-3.2); LYMPHOCYTES % 54.8 % (18.0-39.1); MEAN CORPUSCULAR HEMOGLOBIN 30.4 pg (28-32); MEAN CORPUSCULAR HGB CONC 32.1 g/dL (31-35); MEAN CORPUSCULAR VOLUME 94.6 fL (81-99); MONOCYTES # (AUTO) 0.5 (0.2-0.8); MONOCYTES % 6.6 % (4.4-11.3); NEUTROPHILS # (AUTO) 2.7 (2.1-6.9); NEUTROPHILS % 35.2 % (38.7-80.0); PLATELET COUNT 324 x10e3/uL (140-360); RED BLOOD COUNT 3.72 x10e6/uL (3.6-5.1); RED CELL DISTRIBUTION WIDTH 12.7 % (11.7-14.4); WHITE BLOOD COUNT 7.59 x10e3/uL (4.8-10.8)
[2024-02-10 06:26] LABS: ALBUMIN 3.3 g/dL (3.5-5.0); ALBUMIN/GLOBULIN RATIO 1.2 (0.8-2.0); ANION GAP 11.8 mmol/L (8-16); BILIRUBIN,TOTAL 0.6 mg/dL (0.2-1.2); CALCIUM 8.3 mg/dL (8.4-10.2); CREATININE, SERUM 0.81 mg/dL (0.57-1.11); POTASSIUM 3.8 mmol/L (3.5-5.1); TOTAL PROTEIN 6.1 g/dL (6.5-8.1)
[2024-02-10 11:13] LABS: EOSINOPHILS % (MANUAL) 4 % (0-7); LYMPHOCYTES % (MANUAL) 50 % (19-48); MONOCYTES % (MANUAL) 11 % (3.4-9.0); NEUTROPHILS % (MANUAL) 35 % (40-74); PLATELET ESTIMATE ADEQUATE; PLATELET MORPHOLOGY COMMENT NORMAL; RBC MORPHOLOGY COMMENT NORMAL
[2024-02-10] MEDS ORDERED: KETOROLAC TROMETHAMINE 30 MG/ML VIAL ONE (12:41)
[2024-02-10] MEDS ORDERED: SODIUM CHLORIDE 0.9% 1000 ML BAG ONE (12:41)
[2024-02-10] MEDS ORDERED: Morphine 4mg INJECTION 4 MG/ML INJ ONE (12:41)
[2024-02-10] MEDS ORDERED: ASPIRIN 81 MG ENTERIC COATED PO ONE (12:42)
[2024-02-10] MEDS ORDERED: POLYETHYLENE GLYCOL 3350 17 GM PACK ONE (12:42)
[2024-02-10] MEDS ORDERED: Sodium Chloride 0.9% 50ML Bag ONE (12:42)
[2024-02-10] MEDS ORDERED: PHENAZOPYRIDINE HCL 100 MG TAB ONE (12:42)
[2024-02-10] MEDS ORDERED: OXYBUTYNIN CHLORIDE 5 MG TAB ONE (12:42)
[2024-02-10] MEDS ORDERED: CEFTRIAXONE 1 GM VIAL ONE (12:42)
[2024-02-10] MEDS ORDERED: DOCUSATE SODIUM 100 MG CAP ONE (12:42)
[2024-02-11] VITALS: BP 121/77; PULSE 66; RESP 20; TEMP 98.6; O2SAT 100
[2024-02-11 04:00] VITALS: BP 111/67; PULSE 50; RESP 20; TEMP 98.1; O2SAT 100
[2024-02-11 06:02] LABS: BASOPHILS # (AUTO) 0.1 (0.0-0.1); BASOPHILS % 0.6 % (0.0-1.0); EOSINOPHILS # (AUTO) 0.2 (0.0-0.4); EOSINOPHILS % 2.8 % (0.0-6.0); HEMATOCRIT 34.8 % (34.2-44.1); HEMOGLOBIN 11.2 g/dL (12.0-16.0); LYMPHOCYTES # (AUTO) 4.2 (1.0-3.2); LYMPHOCYTES % 53.3 % (18.0-39.1); MEAN CORPUSCULAR HEMOGLOBIN 30.4 pg (28-32); MEAN CORPUSCULAR HGB CONC 32.2 g/dL (31-35); MEAN CORPUSCULAR VOLUME 94.3 fL (81-99); MONOCYTES # (AUTO) 0.4 (0.2-0.8); MONOCYTES % 5.6 % (4.4-11.3); NEUTROPHILS # (AUTO) 2.9 (2.1-6.9); NEUTROPHILS % 37.6 % (38.7-80.0); PLATELET COUNT 345 x10e3/uL (140-360); RED BLOOD COUNT 3.69 x10e6/uL (3.6-5.1); RED CELL DISTRIBUTION WIDTH 12.5 % (11.7-14.4); WHITE BLOOD COUNT 7.83 x10e3/uL (4.8-10.8)
[2024-02-11 06:38] LABS: ALBUMIN 3.3 g/dL (3.5-5.0); ALBUMIN/GLOBULIN RATIO 1.1 (0.8-2.0); BILIRUBIN,TOTAL 0.4 mg/dL (0.2-1.2); CALCIUM 8.5 mg/dL (8.4-10.2); CREATININE, SERUM 0.77 mg/dL (0.57-1.11); MAGNESIUM 1.8 MG/DL (1.3-2.1); TOTAL PROTEIN 6.3 g/dL (6.5-8.1)
[2024-02-11 08:28] VITALS: BP 122/81; PULSE 93; RESP 18; TEMP 98.5; O2SAT 100
[2024-02-11 08:54] VITALS: BP 122/81; PULSE 93; RESP 18; TEMP 98.5; O2SAT 100
[2024-02-11 08:57] LABS: EOSINOPHILS % (MANUAL) 3 % (0-7); LYMPHOCYTES % (MANUAL) 60 % (19-48); MONOCYTES % (MANUAL) 4 % (3.4-9.0); NEUTROPHILS % (MANUAL) 33 % (40-74); PLATELET ESTIMATE ADEQUATE; PLATELET MORPHOLOGY COMMENT NORMAL; RBC MORPHOLOGY COMMENT NORMAL
[2024-02-11] MEDS ORDERED: OXYBUTYNIN CHLOR5 MG PO (09:50)
[2024-02-11] MEDS ORDERED: CEFDINIR300 MG PO (09:50)
== END 2024-02-11 10:55 | disposition home or self-care (01) | DRG 694 ==
LOC: ER 01:00 → ERHOLD 04:12 → MED/SURG3 06:11
PROVIDERS: ADMIT Internal Medicine; ATTEND Internal Medicine
DX: N13.2 Hydronephrosis with renal and ureteral calculous obstruction (principal); I10 Essential (primary) hypertension; K21.9 Gastro-esophageal reflux disease without esophagitis; J45.909 Unspecified asthma, uncomplicated; H90.5 Unspecified sensorineural hearing loss; K57.90 Diverticulosis of intestine, part unspecified, without perforation or abscess without bleeding; Z90.49 Acquired absence of other specified parts of digestive tract; Z91.041 Radiographic dye allergy status; Z91.018 Allergy to other foods; Z91.013 Allergy to seafood; Z79.2 Long term (current) use of antibiotics; Z79.51 Long term (current) use of inhaled steroids; Z79.52 Long term (current) use of systemic steroids; E86.0 Dehydration; N32.89 Other specified disorders of bladder
CPT/HCPCS: 36415; 74018; 74176; 80053; 81001; 81025; 83735; 84550; 85025; 87086; 99284; J0696; J1644; J1885; J2270; J2405; J2543; J7030; U0002

== ENCOUNTER → 2024-07-19 | Day surgery (SDC) | payer OTHER ==
[~2024-07-19] MED LIST changes: +BENEFIBER1 EAC1 PO; +DICYCLOMINE HCL10 MG PO; +FENTANYL CITRATE/PF 100MCG/2 ML INJ ONE; +LACTATED RINGER'S 1,000 ML ONE; +LEVOTHYROXINE50 MCG PO; +LIDOCAINE HCL 2% LOCAL INJ 5 ML SDV VIAL INJ ONE; +METOCLOPRAMIDE HCL 10 MG/2ML VIAL ONE; +MIDAZOLAM HCL 2 MG/2 ML VIAL ONE; +ONDANSETRON HCL INJ 2MG/ML 2ML 2 MG/ML VIAL ONE; +OXYBUTYNIN CHLOR5 MG PO; +POLYETHYLENE GL17 GM PO; +PROAIR DIGIHAL90 MCG INH; +PROBIOTIC & AC1 EACH PO; +PROPOFOL IV EMULSION 10 MG/ML 20 ML VIAL ONE
[2024-07-19 11:42] VITALS: TEMP 97.7
[2024-07-19] MEDS: ONDANSETRON HCL INJ 2MG/ML 2ML 2 MG/ML VIAL IV ONE (12:00)
[2024-07-19 12:15] VITALS: BP 142/84; PULSE 79; RESP 16; O2SAT 100
[2024-07-19] MEDS: METOCLOPRAMIDE HCL 10 MG/2ML VIAL IV ONE (12:33)
== END | disposition home or self-care (01) ==
LOC: OR 08:18
PROVIDERS: ATTEND Internal Medicine Gastroenterology
DX: K29.50 Unspecified chronic gastritis without bleeding (principal); K57.30 Diverticulosis of large intestine without perforation or abscess without bleeding; K59.00 Constipation, unspecified; K21.9 Gastro-esophageal reflux disease without esophagitis; K28.9 Gastrojejunal ulcer, unspecified as acute or chronic, without hemorrhage or perforation; A04.8 Other specified bacterial intestinal infections; K64.1 Second degree hemorrhoids; R03.0 Elevated blood-pressure reading, without diagnosis of hypertension; J45.909 Unspecified asthma, uncomplicated; E03.9 Hypothyroidism, unspecified; M54.50 Low back pain, unspecified; N20.0 Calculus of kidney; Z91.041 Radiographic dye allergy status; Z91.013 Allergy to seafood; Z79.1 Long term (current) use of non-steroidal anti-inflammatories (NSAID); Z79.899 Other long term (current) drug therapy; Z68.30 Body mass index [BMI] 30.0-30.9, adult; Z87.898 Personal history of other specified conditions
CPT/HCPCS: 43239; 45378; J2001; J2250; J2405; J2704; J2765; J3010; J7121; J2003

== ENCOUNTER 2024-10-31 12:21 | Emergency (ER) | payer OTHER ==
[~2024-10-31] VITALS: Ht 160 cm; Wt 76.7 kg
[~2024-10-31 12:21] MED LIST changes: -FENTANYL CITRATE/PF 100MCG/2 ML INJ ONE; -LACTATED RINGER'S 1,000 ML ONE; -LIDOCAINE HCL 2% LOCAL INJ 5 ML SDV VIAL INJ ONE; -METOCLOPRAMIDE HCL 10 MG/2ML VIAL ONE; -MIDAZOLAM HCL 2 MG/2 ML VIAL ONE; -ONDANSETRON HCL INJ 2MG/ML 2ML 2 MG/ML VIAL ONE; -PROPOFOL IV EMULSION 10 MG/ML 20 ML VIAL ONE
[2024-10-31 12:37] VITALS: PULSE 105; RESP 19; TEMP 98.9; O2SAT 99
[2024-10-31] MEDS ORDERED: LOPERAMIDE HCL 2 MG CAP PO STA (12:55)
[2024-10-31 13:06] LABS: BASOPHILS % 0.2 % (0.0-1.0); EOSINOPHILS # (AUTO) 0.2 (0.0-0.4); EOSINOPHILS % 1.6 % (0.0-6.0); HEMATOCRIT 47.2 % (34.2-44.1); LYMPHOCYTES # (AUTO) 1.9 (1.0-3.2); LYMPHOCYTES % 15.6 % (18.0-39.1); MEAN CORPUSCULAR HEMOGLOBIN 31.3 pg (28-32); MEAN CORPUSCULAR HGB CONC 31.8 g/dL (31-35); MEAN CORPUSCULAR VOLUME 98.5 fL (81-99); MONOCYTES # (AUTO) 0.7 (0.2-0.8); NEUTROPHILS # (AUTO) 9.4 (2.1-6.9); NEUTROPHILS % 76.3 % (38.7-80.0); PLATELET COUNT 385 x10e3/uL (140-360); RED BLOOD COUNT 4.79 x10e6/uL (3.6-5.1); RED CELL DISTRIBUTION WIDTH 13.2 % (11.7-14.4); WHITE BLOOD COUNT 12.34 x10e3/uL (4.8-10.8)
[2024-10-31 13:45] LABS: ALBUMIN 4.4 g/dL (3.5-5.0); ALBUMIN/GLOBULIN RATIO 1.1 (0.8-2.0); ANION GAP 15.4 mmol/L (8-16); BILIRUBIN,TOTAL 0.6 mg/dL (0.2-1.2); CALCIUM 9.8 mg/dL (8.4-10.2); CREATININE, SERUM 0.98 mg/dL (0.57-1.11); TOTAL PROTEIN 8.5 g/dL (6.5-8.1)
[2024-10-31 13:47] LABS: POTASSIUM 3.4 mmol/L (3.5-5.1)
[2024-10-31] MEDS: SODIUM CHLORIDE 0.9% 1000ML 1,000 ML IV STA (13:53)
[2024-10-31] MEDS: DICYCLOMINE HCL 20 MG/2 ML VIAL IM ONE (13:54)
[2024-10-31] MEDS: ONDANSETRON HCL INJ 2MG/ML 2ML 2 MG/ML VIAL IV PRN (13:54)
[2024-10-31 14:19] LABS: CLARITY,URINE CLOUDY (CLEAR); COLOR,URINE YELLOW (YELLOW); GLUCOSE, URINE NEGATIVE (NEGATIVE); LEUKOCYTE ESTERASE ,URINE NEGATIVE (NEGATIVE); NITRITE,URINE NEGATIVE (NEGATIVE); PH,URINE 5.5 (5 - 7); PROTEIN,URINE DIPSTICK 2+ (NEGATIVE)
[2024-10-31 14:20] LABS: BACTERIA,URINE MANY /HPF; BILIRUBIN,URINE SMALL (NEGATIVE); EPITHELIAL CELLS,URINE RARE /LPF; KETONES,URINE TRACE (NEGATIVE); RBC,URINE 0-5 /HPF (0-5); URINE UROBILINOGEN 0.2 mg/dL (0.2 - 1); WBC,URINE (MAN) 0-5 /HPF (0-5)
[2024-10-31 14:22] LABS: AMORPHOUS SEDIMENT,URINE MODERATE (FEW)
[2024-10-31] MEDS ORDERED: ONDANSETRON ODT4 MG PO (14:31)
[2024-10-31] MEDS ORDERED: CEFDINIR300 MG PO (14:31)
[2024-10-31] MEDS ORDERED: OMEPRAZOLE40 MG PO (14:31)
== END 2024-10-31 15:50 | disposition home or self-care (01) ==
LOC: ER 12:35
DX: R11.2 Nausea with vomiting, unspecified (principal); N39.0 Urinary tract infection, site not specified; R19.7 Diarrhea, unspecified; I10 Essential (primary) hypertension; K21.9 Gastro-esophageal reflux disease without esophagitis; J45.909 Unspecified asthma, uncomplicated; H91.3 Deaf nonspeaking, not elsewhere classified; Z87.19 Personal history of other diseases of the digestive system
CPT/HCPCS: 36415; 80053; 81001; 83690; 85025; 99284; J0500; J2405; J2470; J7030

== ENCOUNTER 2024-12-26 12:29 | Emergency (ER) | payer OTHER ==
[~2024-12-26] VITALS: Ht 160 cm; Wt 75.9 kg
[~2024-12-26 12:29] MED LIST changes: +OMEPRAZOLE40 MG PO
[2024-12-26 13:57] VITALS: PULSE 76; RESP 20; TEMP 98.1
[2024-12-26] MEDS ORDERED: CYCLOBENZAPRINE5 MG PO (14:52)
[2024-12-26] MEDS: KETOROLAC TROMETHAMINE 60 MG/2 ML VIAL IM ONE (15:01)
[2024-12-26 15:08] VITALS: BP 159/88; O2SAT 100
== END 2024-12-26 15:11 | disposition home or self-care (01) ==
LOC: FSED 14:46
DX: M54.50 Low back pain, unspecified (principal); I10 Essential (primary) hypertension; J45.909 Unspecified asthma, uncomplicated; K21.9 Gastro-esophageal reflux disease without esophagitis; H91.3 Deaf nonspeaking, not elsewhere classified; Z87.19 Personal history of other diseases of the digestive system
CPT/HCPCS: 96372; 99282; J1885